=== PATIENT | female | born 2000 | race Caucasian/White ===

== ENCOUNTER 2020-09-21 09:59 | Outpatient (RCR) | payer OTHER, SELFPAY ==
[2020-04-14 13:27] VITALS: BMI 24.0
== END 2020-09-21 23:59 ==
LOC: IMMUN 09:59
PROVIDERS: PCP Family Medicine; Visit Provider Family Medicine
DX: Z23 Encounter for immunization (principal)
CPT/HCPCS: 0011A; 0012A; 91301

== ENCOUNTER 2022-02-10 18:45 | Emergency (ER) | payer OTHER, SELFPAY ==
[2022-02-10 18:45] VITALS: BP 133/75; PULSE 94; RESP 14; TEMP 36.2; O2SAT 98; BMI 26.2
--- NOTE | 2022-02-10 18:59 | EDS_ITS ---
HPI History of Present Illness Chief Complaint: Head Injury Informant: patient Onset/Context/Timing Onset: Today and Hours Mechanism/Context: Blunt Injury Current Severity: Mild Maximum Severity: Mild Associated Symptoms Associated Symptoms: Negative for Parasthesias, Weakness, Loss of function, Inability to ambulate, Loss of consciousness and Amnesia Narrative Narrative: 21-year-old female history of anxiety, depression and PTSD. Was skateboarding with a helmet on and hit a speed bump fell hit her head cracked the helmet. No LOC. No neck pain. No severe headache. Mild nausea. No vomiting. She is on no blood thinners. She has an abrasion to her left elbow. Prior similar symptoms: No Recent Illness/Hospitalization: No PFSH PFSH Medical History Asthma Chronic neck and back pain Diabetes Shoulder pain Home Medications sertraline 50 mg tablet 50 mg PO TID tab 04/14/20 [History Last Taken Unknown] Allergy/AdvReac Type Severity Reaction Status Date / Time chicken derived Allergy Mild Upset Verified 02/10/22 18:47 Stomach lactase [From Dairy Aid] Allergy Mild Diarrhea Verified 02/10/22 18:47 oats Allergy Mild Upset Verified 02/10/22 18:47 Stomach beet Allergy Nausea/Vom/ Verified 02/10/22 18:47 Diarrhea Social History Smoking Status: Never smoker alcohol intake: current alcohol intake frequency: a few times a week Alcohol type: wine ROS ROS ED ROS Narrative Nausea. Review of Systems ROS Unobtainable: Denies due to encephalopathy Constitutional Constitutional ED: Denies fever(s) Eyes Eyes: Denies change in vision ENT ENT ED: Denies ear pain Cardiovascular Cardiovascular: Denies chest pain Respiratory/Chest Respiratory/Chest: Denies dyspnea Gastrointestinal Gastrointestinal: Reports nausea; Denies abdominal pain, diarrhea or vomiting Genitourinary Genitourinary ED: Denies dysuria Musculoskeletal Musculoskeletal: Denies myalgias Integumentary Denies rash Neurologic Neurologic: Denies headache(s) Psychiatric Psychiatric: Denies depression Endocrine Endocrinology: Denies polyuria Hematologic/Lymphatic Hematologic/Lymphatic: Denies easy bruising Allergic/Immunologic Allergic/Immunologic ED: Denies urticaria EXAM Physical Exam Narrative Exam Narrative: 18-year-old female no acute distress vital signs stable afebrile. H EENT exam unremarkable. There is no signs of trauma or tenderness to her scalp. No lacerations. No hematomas. Pupils round reactive light 2 mm bilaterally. TMs normal no hemotympanum. No signs of trauma to her face or scalp. Nontender. C-spine nontender. Full range of motion. Lungs are clear. Heart regular rhythm. Chest wall nontender. Abdomen soft nontender. Pelvic girdle intact. Moving all 4 extremities. Neurovascular intact. Equal symmetrical 5 out of 5 publication distributor strength. Dorsi plantarflexion intact. Full range of motion of both shoulders, elbows and wrist. Abrasion left elbow but full range of motion no bony deformity no significant tenderness. Back and spine nontender. Neurologic exam normal. GCS of 15. Awake and alert. Knows date, month and year. Knows where she is at. Answering questions and following commands. Const Vital Signs: 02/10/22 18:45 Temperature 97.1 F L Temperature Source Temporal Pulse Rate 94 Respiratory Rate 14 Blood Pressure 133/75 H Blood Pressure Mean 94 Pulse Ox 98 Oxygen Delivery Method Room Air Positive well nourished and well developed; Negative for obese, cachectic, contractures or unkempt General Appearance ED: well developed and NAD; Negative for unkempt, cachectic or contractures Nutritional Appearance: Negative for cachectic or obese HEENT HEENT Narrative: No signs of trauma to her head. No contusions. No abrasions or lacerations. Nontender. trauma; Negative for atraumatic or tenderness Eyes PERRL and EOMs intact bilaterally Neck full ROM General: Negative for tenderness Chest Wall inspection of chest normal and palpation of chest normal Resp normal respiratory effort and clear to auscultation bilaterally Auscultation: Negative for rales, rhonchi or wheezes Cardio regular rhythm, S1 normal heart sound, S2 normal heart sound and no murmurs Rate: regular rate GI normal to inspection, nondistended, normoactive bowel sounds, non-tender, non- distended and no masses Inspection: Negative for abdominal distention Auscultation: normoactive bowel sounds Palpation: soft; Negative for tender, guarding or rebound tenderness present Back/Spine normal to inspection and no thoracic nor lumbar tenderness General Back: CVA tenderness Thoracic Spine / Upper Back: Negative for thoracic spinal tenderness Extremity normal to inspection and full ROM Extremity Narrative: Left elbow abrasion. No deformity. No significant swelling. Full range of motion. Full flexion extension. Supination and pronation. General Extremety ED: Negative for deformity, edema or tenderness General Extremity: Negative for deformity or edema Neuro oriented x3, CN's II-XII intact bilaterally, moves all extremities, no focal motor deficits and no sensory deficits noted [place] Coma Scale: document GCS findings Spontaneous Obeys Commands Oriented 15 Sensorium / Orientation: alert, oriented to person, oriented to place and oriented to time; Negative for orientation impaired, lethargic or stuporous Motor Exam: strength 5/5 throughout Psych mental status grossly normal and thought process normal Appearance: Negative for unkempt Attitude: No agitated Mood & Affect: Negative for depressed, anxious or tearful Skin no rashes or lesions noted and No no wounds Skin Narrative: Abrasion left elbow. MDM MDM MDM Narrative Medical decision making narrative: 21-year-old with a head injury. She was skateboarding. Was helmeted. Neurologic exam normal. She is on no blood thinners. Had no LOC. Has no signs of head trauma on exam. She does not need imaging. She is abrasion over left elbow does not need imaging. She did not want anything for pain or nausea. Discharged to home with head injury instructions. Discharge Plan Triage Chief Complaint: Head Injury ED Provider: Reji Luis Dx/Rx/DC Orders Clinical Impression: Head injury, Concussion, Fall, Abrasion of elbow, left Instructions: ED Concussion, ED Head Injury (Adult) Prescriptions: No Action sertraline 50 mg tablet 50 mg PO TID RF: 0 Primary Care Provider: Sedrick Muñoz Referrals: Sedrick Muñoz MD [Primary Care Provider] - 3-5 Days if not improving Activity Restrictions/Additional Instructions: Keep your elbow clean and apply antibiotic ointment daily. Ice to the elbow. Tylenol and Motrin for pain. Follow-up with your doctor if not improving. Return to the emergency department if severe headache, vomiting or not acting herself. At this time you do not need a CAT scan. Disposition Disposition: Home, Self Care
== END 2022-02-10 19:19 | disposition home or self-care (01) ==
PROVIDERS: Emergency Provider Emergency Medicine; PCP Family Medicine; Visit Provider Emergency Medicine
DX: S06.0X0A Concussion without loss of consciousness, initial encounter (principal); E11.9 Type 2 diabetes mellitus without complications; S50.312A Abrasion of left elbow, initial encounter; F41.9 Anxiety disorder, unspecified; R11.0 Nausea; S00.91XA Abrasion of unspecified part of head, initial encounter; J45.909 Unspecified asthma, uncomplicated; V00.131A Fall from skateboard, initial encounter; Y93.51 Activity, roller skating (inline) and skateboarding
CPT/HCPCS: 99282